=== PATIENT | male | born 1945 | race Caucasian/White ===

== ENCOUNTER 2017-11-28 13:30 | Outpatient (CLI) | payer MEDICARE, BC ==
[2018-02-02 13:51] VITALS: BMI 44.3
== END 2017-11-28 23:59 | disposition home or self-care (01) ==
LOC: D.RAD 13:30
DX: K22.2 Esophageal obstruction (principal)

== ENCOUNTER 2017-12-30 21:29 | Inpatient (IN) | payer MEDICARE, BC ==
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
[2017-12-30] MEDS ORDERED: NEURONTIN 400400 MG PO (21:48)
[2017-12-30] MEDS ORDERED: PEPCID AC20 MG PO (21:49)
[2017-12-30] MEDS ORDERED: ELIQUIS5 MG PO (21:49)
[2017-12-30] MEDS ORDERED: MARINOL5 MG PO (21:50)
[2017-12-30] MEDS ORDERED: CARAFATE1 G PO (21:51)
[2017-12-30] MEDS ORDERED: PROTONIX40 MG PO (21:51)
[2017-12-30] MEDS ORDERED: HYDROCODONE-APA1 TAB PO (21:52)
[2017-12-30] MEDS ORDERED: GLUCOPHAGE500 MG PO (21:52)
[2017-12-30] MEDS ORDERED: XANAX1 MG PO (21:53)
[2017-12-30] MEDS ORDERED: MULTIPLE VITAMI1 TA1 PO (21:53)
[2017-12-30] MEDS ORDERED: LIPITOR40 MG PO (21:54)
[2017-12-30] MEDS ORDERED: LISINOPRIL10 MG PO (21:54)
[2017-12-30] MEDS ORDERED: REMERON15 MG PO (21:55)
[2017-12-30] MEDS ORDERED: FLOMAX0.4 MG PO (21:55)
[2017-12-30] MEDS ORDERED: BAYER CHEWABLE81 MG PO (21:55)
[2017-12-30] MEDS ORDERED: FESOL PO (21:56)
[2017-12-30 22:39] LABS: BASOPHILS 0.4 % (0-2); EOSINOPHILS 6.2 % (0-7); HEMATOCRIT 39.1 % (42.0-54.0); HEMOGLOBIN 12.1 g/dL (13.5-17.5); IMMATURE GRANULOCYTES 0.3 % (0-5); LYMPHOCYTES 41.2 % (15-50); MCH 26.1 pg (26.0-34.0); MCHC 30.9 g/dL (31.0-37.0); MCV 84.3 fL (80.0-100.0); MEAN PLATELET VOLUME 9.7 fL (7.4-10.4); MONOCYTES 8.6 % (2-11); NEUTROPHILS 43.3 % (40-80); RBC 4.64 10x6/uL (4.20-6.10); RDW 16.7 % (11.5-14.5)
[2017-12-30 22:40] LABS: PLATELET COUNT 360 10x3/uL (130-400)
[2017-12-30 22:44] LABS: APTT 39.8 SECONDS (22.8-39.4); INR 1.13 (0.85-1.17)
[2017-12-30 22:49] LABS: ALBUMIN 2.6 g/dL (3.4-5.0); ALKALINE PHOSPHATASE 83 U/L (46-116); ALT (SGPT) 26 U/L (10-68); BILIRUBIN - TOTAL 0.22 mg/dL (0.2-1.3); CALC OSMOLALITY 282 mosm/kg (275-300); CALCIUM 9.1 mg/dL (8.5-10.1); CARBON DIOXIDE 32.1 mmol/L (21.0-32.0); CHLORIDE - SERUM 105 mmol/L (98-107); CREATININE - SERUM 0.9 mg/dL (0.6-1.3); GLUCOSE 119 mg/dL (74-106); PROTEIN - SERUM 7.3 g/dL (6.4-8.2); SODIUM 141 mmol/L (136-145); UREA NITROGEN 14 mg/dL (7-18); eGFR NON AFRICAN AMERICAN 88 mL/min (90-120)
[2017-12-30 23:04] LABS: CREATINE KINASE 38 UL (21-232); PRO BNP 65 pg/mL (0-125)
[2017-12-30 23:21] LABS: CKMB 0.6 U/L (0.0-3.6)
[2017-12-30 23:23] LABS: TROPONIN-I < 0.017 ng/mL (0.000-0.060)
[2017-12-31] VITALS (7 sets, daily range): BP systolic 96–121; BP diastolic 53–74; BMI 39.7; BMI 39.6
[2017-12-31 10:45] LABS: APPEARANCE HAZY (CLEAR); BILIRUBIN NEGATIVE (NEGATIVE); COLOR YELLOW (YELLOW); GLUCOSE NEGATIVE (NEGATIVE); KETONE NEGATIVE (NEGATIVE); NITRITE NEGATIVE (NEGATIVE); PROTEIN NEGATIVE (NEGATIVE); UROBILINOGEN NORMAL (NORMAL)
[2018-01-01 01:43] VITALS: BP 98/54
[2018-01-01 05:00] LABS: BASOPHILS 0.5 % (0-2); EOSINOPHILS 7.3 % (0-7); HEMATOCRIT 35.8 % (42.0-54.0); HEMOGLOBIN 10.9 g/dL (13.5-17.5); IMMATURE GRANULOCYTES 0.4 % (0-5); LYMPHOCYTES 44.1 % (15-50); MCH 25.5 pg (26.0-34.0); MCHC 30.4 g/dL (31.0-37.0); MCV 83.8 fL (80.0-100.0); MEAN PLATELET VOLUME 9.4 fL (7.4-10.4); MONOCYTES 8.2 % (2-11); NEUTROPHILS 39.5 % (40-80); PLATELET COUNT 319 10x3/uL (130-400); RBC 4.27 10x6/uL (4.20-6.10); RDW 16.5 % (11.5-14.5)
[2018-01-01 05:12] LABS: WBC 7.9 10x3/uL (4.8-10.8)
[2018-01-01 05:28] LABS: CALC OSMOLALITY 284 mosm/kg (275-300); CALCIUM 8.4 mg/dL (8.5-10.1); CARBON DIOXIDE 28.9 mmol/L (21.0-32.0); CHLORIDE - SERUM 108 mmol/L (98-107); CREATININE - SERUM 0.8 mg/dL (0.6-1.3); GLUCOSE 120 mg/dL (74-106); POTASSIUM - SERUM 3.8 mmol/L (3.5-5.1); SODIUM 143 mmol/L (136-145); eGFR NON AFRICAN AMERICAN > 90 mL/min (90-120)
[2018-01-01 05:32] LABS: UREA NITROGEN 10 mg/dL (7-18)
[2018-01-01 05:38] VITALS: BP 92/53
[2018-01-01 08:45] VITALS: BP 101/61
[2018-01-01 12:41] VITALS: BP 95/61
[2018-01-01 16:00] VITALS: BP 98/60
[2018-01-01 20:30] VITALS: BP 95/50
[2018-01-02 00:30] VITALS: BP 94/53
[2018-01-02 04:30] VITALS: BP 100/56
[2018-01-02 05:22] LABS: BASOPHILS 0.3 % (0-2); EOSINOPHILS 7.1 % (0-7); HEMATOCRIT 34.8 % (42.0-54.0); HEMOGLOBIN 10.8 g/dL (13.5-17.5); IMMATURE GRANULOCYTES 0.5 % (0-5); LYMPHOCYTES 38.4 % (15-50); MCH 25.8 pg (26.0-34.0); MCV 83.3 fL (80.0-100.0); MEAN PLATELET VOLUME 9.3 fL (7.4-10.4); MONOCYTES 6.9 % (2-11); NEUTROPHILS 46.8 % (40-80); PLATELET COUNT 340 10x3/uL (130-400); RBC 4.18 10x6/uL (4.20-6.10); RDW 16.5 % (11.5-14.5)
[2018-01-02 05:36] LABS: WBC 10.1 10x3/uL (4.8-10.8)
[2018-01-02 05:49] LABS: CALC OSMOLALITY 282 mosm/kg (275-300); CALCIUM 8.8 mg/dL (8.5-10.1); CARBON DIOXIDE 29.6 mmol/L (21.0-32.0); CHLORIDE - SERUM 105 mmol/L (98-107); CREATININE - SERUM 0.7 mg/dL (0.6-1.3); GLUCOSE 114 mg/dL (74-106); POTASSIUM - SERUM 4.1 mmol/L (3.5-5.1); SODIUM 142 mmol/L (136-145); UREA NITROGEN 10 mg/dL (7-18); eGFR NON AFRICAN AMERICAN > 90 mL/min (90-120)
[2018-01-02 07:59] VITALS: BP 108/57
[2018-01-02 11:17] VITALS: BP 114/63
[2018-01-02 15:32] VITALS: BP 129/63
[2018-01-02] MEDS ORDERED: AUGMENTIN 875-11 TAB PO (16:25)
== END 2018-01-02 18:01 | disposition home health service (06) | DRG 194 ==
LOC: D.ER 21:29 → D.M2 23:38 → D.ER 12-31 00:04 → D.M2 01-02 18:01
PROVIDERS: Family Medicine
DX: J15.9 Unspecified bacterial pneumonia (principal); J98.11 Atelectasis; I25.10 Atherosclerotic heart disease of native coronary artery without angina pectoris; F41.9 Anxiety disorder, unspecified; E11.42 Type 2 diabetes mellitus with diabetic polyneuropathy; I10 Essential (primary) hypertension; E78.5 Hyperlipidemia, unspecified; N40.0 Benign prostatic hyperplasia without lower urinary tract symptoms; Z79.01 Long term (current) use of anticoagulants; Z89.611 Acquired absence of right leg above knee; Z89.612 Acquired absence of left leg above knee; Z86.711 Personal history of pulmonary embolism

== ENCOUNTER 2018-02-02 12:03 | Day surgery (SDC) | payer MEDICARE, BC ==
[~2018-02-02] VITALS: Ht 121.9 cm; Wt 65.9 kg
--- NOTE | ~2018-02-02 | OP ---
PATIENT NAME: LINDA CRANE MEDICAL RECORD: [id number] :41 LOCATION:D.OPS ADMISSION DATE: SURGEON: MARIKA MULLEN MD DATE OF OPERATION: 02/02/2018 PROCEDURE: EGD with balloon dilatation of distal esophageal spasm and minimal stricture and EGD with biopsy. SUPERVISOR FINISHING DEPARTMENT: Marika Mullen MD SCOPE: Olympus video colonoscope. MEDICATIONS: Per TIVA anesthesia. The patient received 100 mg of propofol for this procedure, O2 4 liters. INDICATION FOR THE PROCEDURE: 1. Dysphagia. 2. Abnormal weight loss, heartburn and nausea. FINDINGS: Informed consent was given. The patient was made comfortable with the above medications. After reaching an adequate level of sedation by slow IV push, the patient was placed on his left side. The endoscope was then advanced under direct visualization through the posterior pharyngeal area where some retained fluid was noted and quickly suctioned. We then advanced the scope to the distal esophagus. The patient had some decreased esophageal motility and at the distal esophageal area, a very tight spasm was appreciated. He also had some mild dilatation of the esophagus. At this point, we will discuss the barium swallow, which was done 11/28/2017, which showed a moderately dilated esophagus throughout the entire esophagus with poor motility. This was suggestive of possible achalasia and a decrease in motility. This will need to be further evaluated with manometry. The scope was gently placed into the gastric area and this occurred after waiting for the spasms to decrease so that we could advance the scope. We then proceeded to examine the entire gastric mucosa, which was significant only for minimal inflammation. A biopsy was taken at the antral area looking for the presence of Helicobacter type pylori. We then went through the antral area into the first and second part of the duodenum, which had fairly normal tissue. On withdrawal of the scope, we proceeded to thoroughly again examine the gastric mucosa and no new findings were appreciated. At the gastroesophageal junction and distal esophagus, the patient responded well to the dilatation, but I suspect with the condition of achalasia with a hypertensive sphincter in the lower esophageal area, the effects of dilatation will be minimal overall. The mucosa at the GE junction was seen to be normal. The scope was then withdrawn. IMPRESSION: 1. Some retained secretions in the oropharyngeal area, which were suctioned. 2. The patient does have esophageal peristalsis, but it is decreased. 3. There is some very mild esophageal dilatation. 4. Hypertensive sphincter versus severe spasm at the GE junction. No obvious stricture, but we did dilate the esophagus to 60-[place] without complication. Mucosa in the distal esophageal area and throughout the esophagus was within normal limits. No biopsy required. 5. Mild gastritis, biopsy taken at the antral area looking for H. pylori. OPERATIVE REPORT [id number] LINDA CRANE 6. Normal duodenum. PLAN: 1. We will try a prescription of Levsin to see if we can relax the lower esophageal sphincter. This should be used on a p.r.n. basis, one sublingual every 4 to 6 hours p.r.n. 2. We will order esophageal manometry if the patient agrees. 3. He is presently on lot of medications, which are no longer needed. He should discontinue Protonix, only use sucralfate p.r.n. and continue his famotidine at a dose of 20 mg p.o. b.i.d. 4. Return to clinic in 1 month for further discussion. TRANSINT:[id number] Voice Confirmation ID: [id number] DOCUMENT ID: [id number] MARIKA MULLEN MD at 1319 CC: RICKI ANAND MD [id number] DICTATION DATE: 02/02/18 1456 ASSEMBLER TESTER: 02/02/18 1743 [facility] 02/02/18 [facility] [address] [place] [address]
[~2018-02-02 12:03] MED LIST: AUGMENTIN 875-11 TAB PO; BAYER CHEWABLE81 MG PO; CARAFATE1 G PO; ELIQUIS5 MG PO; FESOL PO; FLOMAX0.4 MG PO; GLUCOPHAGE500 MG PO; HYDROCODONE-APA1 TAB PO; LIPITOR40 MG PO; LISINOPRIL10 MG PO; MARINOL5 MG PO; MULTIPLE VITAMI1 TA1 PO; NEURONTIN 400400 MG PO; PEPCID AC20 MG PO; PROTONIX40 MG PO; REMERON15 MG PO; XANAX1 MG PO
[2018-02-02 12:55] LABS: BASOPHILS 0.2 % (0-2); EOSINOPHILS 2.6 % (0-7); HEMATOCRIT 41.5 % (42.0-54.0); HEMOGLOBIN 13.4 g/dL (13.5-17.5); IMMATURE GRANULOCYTES 0.2 % (0-5); LYMPHOCYTES 36.5 % (15-50); MCH 26.2 pg (26.0-34.0); MCHC 32.3 g/dL (31.0-37.0); MCV 81.2 fL (80.0-100.0); MEAN PLATELET VOLUME 8.9 fL (7.4-10.4); MONOCYTES 5.8 % (2-11); NEUTROPHILS 54.7 % (40-80); PLATELET COUNT 386 10x3/uL (130-400); RBC 5.11 10x6/uL (4.20-6.10); RDW 16.6 % (11.5-14.5)
[2018-02-02 13:13] LABS: CALC OSMOLALITY 276 mosm/kg (275-300); CALCIUM 9.6 mg/dL (8.5-10.1); CARBON DIOXIDE 31.9 mmol/L (21.0-32.0); CHLORIDE - SERUM 103 mmol/L (98-107); CREATININE - SERUM 0.9 mg/dL (0.6-1.3); GLUCOSE 123 mg/dL (74-106); POTASSIUM - SERUM 4.1 mmol/L (3.5-5.1); SODIUM 138 mmol/L (136-145); UREA NITROGEN 12 mg/dL (7-18); eGFR NON AFRICAN AMERICAN 88 mL/min (90-120)
[2018-02-02 13:51] VITALS: BP 103/71; Ht 121.9 cm; Wt 65.9 kg
== END 2018-02-02 15:45 | disposition home or self-care (01) ==
LOC: D.OPS 12:03
PROVIDERS: Internal Medicine Gastroenterology
DX: K22.8 Other specified diseases of esophagus (principal); K22.4 Dyskinesia of esophagus; K29.60 Other gastritis without bleeding; Z01.812 Encounter for preprocedural laboratory examination

== ENCOUNTER 2018-02-09 08:38 | Outpatient (CLI) | payer MEDICARE, BC ==
[2018-02-02 13:51] VITALS: BMI 44.3
== END 2018-02-09 10:40 ==
LOC: D.OPS 08:38
DX: R13.10 Dysphagia, unspecified (principal); Z01.812 Encounter for preprocedural laboratory examination

== ENCOUNTER 2018-03-10 04:41 | Inpatient (IN) | payer MEDICARE, BC ==
[~2018-03-10] VITALS: Ht 121.9 cm; Wt 59.0 kg
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
[2018-03-10 05:21] LABS: APPEARANCE CLEAR (CLEAR); COLOR YELLOW (YELLOW); GLUCOSE NEGATIVE (NEGATIVE); KETONE NEGATIVE (NEGATIVE); NITRITE NEGATIVE (NEGATIVE); PROTEIN NEGATIVE (NEGATIVE); SPECIFIC GRAVITY 1.015 (1.005-1.020)
[2018-03-10 05:22] LABS: BILIRUBIN NEGATIVE (NEGATIVE); UROBILINOGEN NORMAL (NORMAL)
[2018-03-10 05:35] LABS: BASOPHILS 0.1 % (0-2); EOSINOPHILS 0.8 % (0-7); HEMATOCRIT 43.4 % (42.0-54.0); IMMATURE GRANULOCYTES 0.2 % (0-5); MCH 26.6 pg (26.0-34.0); MCHC 32.3 g/dL (31.0-37.0); MCV 82.4 fL (80.0-100.0); MONOCYTES 5.9 % (2-11); PLATELET COUNT 319 10x3/uL (130-400); RBC 5.27 10x6/uL (4.20-6.10); WBC 14.9 10x3/uL (4.8-10.8)
[2018-03-10 05:53] LABS: ALBUMIN 3.1 g/dL (3.4-5.0); ALKALINE PHOSPHATASE 88 U/L (46-116); ALT (SGPT) 24 U/L (10-68); CALC OSMOLALITY 278 mosm/kg (275-300); CALCIUM 8.8 mg/dL (8.5-10.1); CHLORIDE - SERUM 103 mmol/L (98-107); PROTEIN - SERUM 7.7 g/dL (6.4-8.2); SODIUM 137 mmol/L (136-145); UREA NITROGEN 12 mg/dL (7-18); eGFR NON AFRICAN AMERICAN 77 mL/min (90-120)
[2018-03-10 06:09] LABS: GLUCOSE 184 mg/dL (74-106)
[2018-03-10 08:30] VITALS: BP 100/60
[2018-03-10] MEDS ORDERED: LEVSIN/ANASP0.125 MG PO (14:51)
[2018-03-10 16:32] VITALS: BP 130/69
[2018-03-10 20:00] VITALS: BP 109/59
[2018-03-10 20:11] VITALS: BMI 39.7
[2018-03-11] VITALS: BP 116/66
[2018-03-11 04:00] VITALS: BP 95/55
[2018-03-11 06:01] LABS: BASOPHILS 0.2 % (0-2); EOSINOPHILS 3.4 % (0-7); HEMATOCRIT 36.9 % (42.0-54.0); HEMOGLOBIN 11.6 g/dL (13.5-17.5); IMMATURE GRANULOCYTES 0.4 % (0-5); LYMPHOCYTES 32.2 % (15-50); MCH 26.2 pg (26.0-34.0); MCHC 31.4 g/dL (31.0-37.0); MCV 83.3 fL (80.0-100.0); MEAN PLATELET VOLUME 9.3 fL (7.4-10.4); MONOCYTES 8.2 % (2-11); NEUTROPHILS 55.6 % (40-80); PLATELET COUNT 264 10x3/uL (130-400); RBC 4.43 10x6/uL (4.20-6.10); RDW 17.5 % (11.5-14.5)
[2018-03-11 06:05] LABS: WBC 10.3 10x3/uL (4.8-10.8)
[2018-03-11 08:42] LABS: CALC OSMOLALITY 280 mosm/kg (275-300); CALCIUM 8.3 mg/dL (8.5-10.1); CARBON DIOXIDE 28.2 mmol/L (21.0-32.0); CHLORIDE - SERUM 111 mmol/L (98-107); CREATININE - SERUM 0.8 mg/dL (0.6-1.3); POTASSIUM - SERUM 3.8 mmol/L (3.5-5.1); SODIUM 141 mmol/L (136-145); UREA NITROGEN 10 mg/dL (7-18); eGFR NON AFRICAN AMERICAN > 90 mL/min (90-120)
[2018-03-11 08:43] LABS: GLUCOSE 113 mg/dL (74-106)
[2018-03-11 09:24] VITALS: BP 112/58
[2018-03-11 10:09] VITALS: Ht 121.9 cm; Wt 59.0 kg
== END 2018-03-11 15:59 | disposition home or self-care (01) | DRG 864 ==
LOC: D.ER 04:41 → D.EDHOLD 06:59 → D.MS 06:59
PROVIDERS: Family Medicine
DX: R50.9 Fever, unspecified (principal); R13.10 Dysphagia, unspecified; E11.42 Type 2 diabetes mellitus with diabetic polyneuropathy; I25.10 Atherosclerotic heart disease of native coronary artery without angina pectoris; F41.9 Anxiety disorder, unspecified; I10 Essential (primary) hypertension; E78.5 Hyperlipidemia, unspecified; N40.0 Benign prostatic hyperplasia without lower urinary tract symptoms; Z89.612 Acquired absence of left leg above knee; Z89.611 Acquired absence of right leg above knee; K21.9 Gastro-esophageal reflux disease without esophagitis

== ENCOUNTER → 2018-06-06 09:35 | Outpatient (CLI) | payer MEDICARE, BC ==
[2018-03-11 10:09] VITALS: BMI 39.6
--- NOTE | ~2018-06-06 | ST ---
PATIENT:LINDA CRANE MEDICAL RECORD: [id number] SEX: M LOCATION:[facility] ORDER #: ADMISSION DATE: 06/06/18 AGE OF PATIENT: 73 REFERRING PHYSICIAN: INTERPRETING PHYSICIAN: RAJEEV FELICIANO MD REFERRING PHYSICIAN: Harjit Contreras MD TECHNOLOGIST: AJ Mathew/RIGHT Shante (N) CLINICIAN: Leela Momin RN CLINICAL INDICATIONS: 1. Angina. 2. Coronary artery disease. 3. Hyperlipidemia. 4. Hypertension. PHARMACOLOGIC STRESS PROCEDURE: 1. The patient performed a chemical stress test at rest receiving 0.4 mg Lexiscan by rapid IV injection over 10-15 seconds. 2. This was followed by 5 mL of normal saline both administered by above Clinician. 3. The tracer was administered IV 10-20 second post saline flush per protocol by Technologist. 4. The heart rate was 85 at baseline and was 105 at peak infusion. 5. The blood pressure response was normal. B/P was 116/74 at baseline, 101/62 at peak infusion. 6. The patient had no complaints of angina or anginal equivalent discomfort. 7. The patient had no complaints of shortness of breath following injection of Lexiscan. 8. No significant arrhythmias were observed. 9. The electrocardiogram demonstrated no ST changes suggestive of ischemia. 10. The electrocardiogram demonstrated a normal response to Lexiscan. 11. Normal response to Lexiscan pharmacological stress testing. REST STUDY: DATE: 06/06/2018 HOUR: 09:55 RADIOISOTOPE: Cardiolite 99m Tc VOLUME: 0.6 mL ACTIVITY: 10.1 mCi METHOD OF ADMIN: IV SCAN STARTED: (hour) 11.05 STRESS STUDY: DATE: 06/06/18 HOUR: 11:20 RADIOISOTOPE: Cardiolite 99m Tc VOLUME: 0.8 mL ACTIVITY: 33.0 mCi METHOD OF ADMIN: IV SCAN STARTED: (hour) 12.25 GATED IMAGING: Gated SPECT reveals a preserved ejection fraction of 70% with good wall motion, thickening, and brightening throughout all segments. SPECT: SPECT imaging was performed using Cardiolite as the myocardial perfusion CARDIAC STRESS TEST [id number] LINDA CRANE imaging agent. There is homogeneous uptake throughout all segments but no evidence of inducible ischemia or previous infarction. OVERALL IMPRESSION: 1. This is a normal nuclear stress test with no evidence of inducible ischemia or previous infarction. 2. Gated SPECT reveals a preserved ejection fraction of 70%. 3. In this patient with ongoing symptomatology, the current scan has a low likelihood of hemodynamically significant coronary artery disease. 4. Would evaluate noncardiac etiology chest discomfort. RAJEEV FELICIANO MD at 1856 CC: [id number] DICTATION DATE: 06/06/18 5245 DOOR HANGER: DM 06/07/18 1416 DEP CLI 06/06/18 [facility] [address] [place] [address]
[~2018-06-06 09:35] MED LIST changes: +LEVSIN/ANASP0.125 MG PO
== END | disposition home or self-care (01) ==
LOC: D.HCCARDIO 09:35
DX: I25.10 Atherosclerotic heart disease of native coronary artery without angina pectoris (principal)

== ENCOUNTER 2020-01-17 21:58 | Inpatient (IN) | payer MEDICARE, BC ==
[~2020-01-17] VITALS: Ht 121.9 cm; Wt 68.0 kg
[2020-01-18] MEDS ORDERED: AMBIEN10 MG PO (11:33)
[2020-01-21 11:08] LABS: HEMATOCRIT 48.4 % (42.0-54.0); HEMOGLOBIN 15.6 g/dL (13.5-17.5); MCH 29.1 pg (26.0-34.0); MCHC 32.2 g/dL (31.0-37.0); MCV 90.3 fL (80.0-100.0); MEAN PLATELET VOLUME 8.9 fL (7.4-10.4); RBC 5.36 10x6/uL (4.20-6.10); RDW 14.6 % (11.5-14.5); WBC 7.3 10x3/uL (4.8-10.8)
[2020-01-21 11:17] LABS: ANION GAP 8.2 mmol/L (8-16); CALCIUM 9.2 mg/dL (8.5-10.1); CARBON DIOXIDE 32.2 mmol/L (21.0-32.0); CREATININE - SERUM 1.1 mg/dL (0.6-1.3); POTASSIUM - SERUM 4.4 mmol/L (3.5-5.1)
[2020-01-21 12:19] VITALS: BP 101/81; BMI 45.8
--- NOTE | 2020-01-21 14:36 | NUR ---
1435 URINAL PROVIDED TO PT. PT'S AT SIDE.
--- NOTE | 2020-01-21 15:05 | NUR ---
1500 REPORT PHONED TO ERAN. AWAITING ROOMS READINESS.
--- NOTE | 2020-01-21 15:45 | NUR ---
1545 TO 2222 VIA BED
[2020-01-21 16:08] VITALS: BP 101/81; BMI 45.8
--- NOTE | 2020-01-21 16:08 | NUR ---
RECEIVED PATIENT TRANSFER FROM OUTPATIENT. ALERT AND ORIENTED, ACCOMPANIED BY FAMILY. C/O PAIN. NO S/S OF ACUTE DISTRESS NOTED. IV TO RIGHT FOREARM, SL. SITE PATENT WITHOUT REDNESS OR SWELLING. ON 1.5L O2, NC. NPO. PEG TUBE PLACED LUQ, ABDOMINAL BINDER. BILATERAL AKA, 2 YEARS AGO. DENIES ANY NEEDS AT THIS TIME. CALL LIGHT IN REACH. WILL CONTINUE TO MONITOR.
--- NOTE | 2020-01-21 18:55 | NUR ---
A&O RESTING IN BED WITH EYES OPEN. NO C/O PAIN. NO S/S OF ACUTE DISTRESS NOTED. DENIES ANY NEEDS AT THIS TIME. CALL LIGHT IN REACH. WILL CONTINUE TO MONITOR.
[2020-01-21 21:00] VITALS: BP 103/55
--- NOTE | 2020-01-21 23:10 | NUR ---
TEMP OF 102.[address] HERNANDEZ RETRUNED WITH NEW ORDER OF TYLENOL 650MG Q 6 HR PRN.
[2020-01-22] VITALS (7 sets, daily range): BP systolic 82–101; BP diastolic 49–62; Ht 121.9 cm; Wt 68.0 kg
--- NOTE | 2020-01-22 07:03 | NUR ---
PATIENT RESTING QUIETLY IN BED WITH EYES CLOSED. RESPIRATIONS EVEN NON LABORED. NO SIGNS OF DISTRESS NOTED. SIDE RAILS UP. CALL LIGHT IN REACH. WILL CONTINUE TO MONITOR FOR SAFETY.
--- NOTE | 2020-01-22 09:49 | NUR ---
PATIENT ALERT AND ORIENTED RESTING QUIETLY IN BED. FAMILY AT BEDSIDE. RESPIRATIONS EVEN NOLABORED. NO SIGNS OF DISTRESS NOTED. BELOW THE KNEE AMPUTEE ON BOTH LEGS. PEG TUBE IN PLACE. ABDOMINAL BINDER ON. RIGHT ARM SALINE LOCK. O2 ON 1.5L. DENIES FURTHER NEEDS. SIDE RAILS UP. CALL LIGHT IN REACH. WILL CONTINUE TO MONITOR FOR SAFETY.
--- NOTE | 2020-01-22 10:20 | OP ---
PATIENT NAME: LINDA CRANE MEDICAL RECORD: [id number] :41 LOCATION:D.[address] ADMISSION DATE: SURGEON: ANNA HERNANDEZ MD DATE OF OPERATION: 01/21/2020 SURGEON: Anna Hernandez MD PREOPERATIVE DIAGNOSIS: Achalasia, dysphagia and esophageal dysmotility. POSTOPERATIVE DIAGNOSIS: Achalasia, dysphagia and esophageal dysmotility. PROCEDURE PERFORMED: EGD with balloon dilatation and percutaneous endoscopic gastrostomy tube placement. ANESTHESIA: General. COMPLICATIONS: None. SPECIMENS: None. OPERATIVE COURSE: After consent was obtained, the patient was taken to the operating room and placed in the supine position on the operating room table. General anesthesia was given. A timeout was taken to confirm the correct patient and procedure. A bite block was placed and the scope was passed through the biteblock into the posterior oropharynx. It was passed posterior to the epiglottis under direct endoscopic vision, it was advanced to the esophagus under direct endoscopic vision. There was stenosis noted at the GE junction. The scope was able to be traversed across the GE junction with moderate tension. Once in the stomach, his stomach was insufflated. The scope was advanced through the pylorus into the first portion of duodenum. No abnormalities were identified. The scope was retracted and retroflexed. There is possibly a small hiatal hernia noted. At this time, the 18-20 mm balloon was passed through the working channel of the scope. The scope was directed to the GE junction. The distal esophagus was dilated to 18 mm and held for approximately 3 minutes. Once this was complete, the mucosa was inspected. There was no evidence of mucosal trauma or injury. No bleeding. Scope was advanced back into the stomach and transilluminated into the left upper quadrant. The site was marked and abdominal wall was prepped and draped in typical sterile fashion. Local anesthetic was injected. A stab incision was made with 11-blade scalpel. The needle and angiocatheter passed through the skin incision and into the lumen of the stomach in direct endoscopic vision. The needle was removed. A wire was placed through the Angiocath and grabbed with the snare grasper. At this time, the grasper EGD and wire were removed. The gastrostomy tube was connected to the wire and a standard antegrade pull technique the gastrostomy tube was advanced, pulled to the skin and secured at 3 cm. At this time, the procedure was terminated. All needle and instrument counts were correct. The patient was transferred was extubated and transferred to recovery room in satisfactory condition. TRANSINT:[id number] Voice Confirmation ID: [id number] DOCUMENT ID: [id number] OPERATIVE REPORT [id number] LINDA CRANE JAMES J MD at 1020 CC: [id number] DICTATION DATE: 01/21/20 1402 CUSHION FORMER: 01/22/20 0027 [address] [place] [address] [place] [address]
--- NOTE | 2020-01-22 14:01 | NUR ---
CHECKED ON PATIENT. O2 SAT ON 88%. TURNED O2 UP TO 4L. NOTIFITED DR. HERNANDEZ AND RESPIRATORY. MARY PUT IN ORDERS. PATIENT ALERT AND TALKING. NO S/S OF DISTRESS. PATIENT ON 3L. O2 SAT ON 96%. RESITED GEORGINA TO RIGHT HAND 22GAUGE X1 STICK. AT BEDSIDE. SIDE RAILS UP X3. CALL LIGHT IN REACH. WILL CONTINUE TO MONITOR FOR SAFETY.
--- NOTE | 2020-01-22 15:44 | MORECARE ---
CASE MANAGEMENT DISCHARGE SUMMARY PATIENT: LINDA CRANE UNIT: [id number] ADM DATE: 01/21/20 AGE: 74 : 43 SEX: M ROOM/BED: D.2222 AUTHOR: DANIEL SNOW PHYSICIAN: REFERRING PHYSICIAN: ANNA HERNANDEZ MD DATE OF SERVICE: 01/22/20 Discharge Plan Patient Name: LINDA CRANE Facility: [facility]:[place] : 1945 Planned Disposition: Anticipated Discharge Date: Discharge Date: Expected LOS: 0 Initial Reviewer: [email or web address] Initial Review Date: 01/22/2020 Generated: 01/22/20 4:43 pm Comments DCP- Discharge Planning Updated by [email or web address]: Heidi Olivas on 01/22/20 2:[address] Patient Name: LINDA CRANE Admission Status: Elective Accout number: [id number] Admission Date: 01-21-2020 : 1945 Admission Diagnosis: Attending: ANNA HERNANDEZ Current LOS: 1 Anticipated DC Date: Planned Disposition: Primary Insurance: MEDICARE A & B Discharge Planning Comments: CM MET WITH PATIENT REGARDING DME FOR TUBE FEEDINGS AND A HH COMPANY. CHIO SIGNED FOR [facility] AND [facility] OR [facility] FOR DME. [facility] CONTACTED AND THEY ONLY DO FOR CHILDREN. [facility] CONTACTED, WAITING FOR CALL BACK. WILL FAX HH ORDERS TO [facility]. Senior Vice President: Heidi Olivas External Providers External Provider: [facility]FTER[facility] [place] Next Contact Date: Service Request Date: Service Type: Resolution: Reviewer: Comments: External Provider: Roque Next Contact Date: Service Request Date: Service Type: Resolution: Reviewer: Comments: External Provider: [facility] Next Contact Date: Service Request Date: Service Type: Resolution: Reviewer: Comments: Coverage Notice Reviewer: [email or web address] Sean Olivas Notice Issued Date-Time: 01/22/2020 10:10 Notice Type: Medicare Outpatient Observation Notice Notice Delivered To: Patient Relationship to Patient: Project Management Director Name: Delivery Method: HAND - Hand Delivered Cyn Days: Prior Verbal Notification: Recipient Understood Notice: Yes Recipient Signature: Yes Med Rec Note Co-signed by Attending: Coverage Notice Comment: Reviewer: [email or web address] Sean Olivas Notice Issued Date-Time: 01/22/2020 15:25 Notice Type: Patient Choice Letter Notice Delivered To: Patient Relationship to Patient: Project Management Director Name: Delivery Method: HAND - Hand Delivered Cyn Days: Prior Verbal Notification: Recipient Understood Notice: Yes Recipient Signature: Yes Med Rec Note Co-signed by Attending: Coverage Notice Comment: stephanie lawrence [facility] Patient Name: LINDA CRANE Page [phone] at 1544 All edits/amendments must be made on the electronic document DICTATION DATE: 01/22/20 1543 THREAD TRIMMER: KIM 01/22/20 1543 RPT#: [id number] DC DATE: STATUS: REG [facility] [address] [place] [address] END OF REPORT
--- NOTE | 2020-01-22 17:56 | NUR ---
ASSISTED PATIENT WITH INCINTIVE SPIROMETER. PATIENT MET 1250 12X. WAS UNABLE TO HOLD. RESPIRATIONS EVEN NONLABORED. NO SIGNS OF DISTRESS. SIDE RAILS UP X3. CALL LIGHT IN REACH. WILL CONTINUE TO MONITOR.
--- NOTE | 2020-01-22 18:48 | NUR ---
PATIENT ALERT AND ORIENTED, EATING. RESPIRATIONS EVEN NONLABORED. NO SIGNS OF DISTRESS NOTED. DENIES FURTHER NEEDS. SIDE RAILS UP X3. CALL LIGHT IN REACH. WILL CONTINUE TO MONITOR FOR SAFETY.
--- NOTE | 2020-01-23 02:48 | NUR ---
I have reviewed this patient and I concur with the Shift Assessment completed by the Licensed Practical Nurse today this shift.
[2020-01-23 05:25] VITALS: BP 87/50
--- NOTE | 2020-01-23 05:25 | NUR ---
01/22/20) 0 CONTINUES TO REQUEST XANAX BP 93/[id number]) EYES CLOSED RESP DEEP AND EVEN MOUTH BREATHING NAME CALLED TOUCHED PT. TWICE CONTINUES TO SLEEP RESP. DEEP AND EVEN NO RESP. DIFFICULTY OBSERVED. WILL CONTINUE TO MONITOR FOR ANY CHGES AND FOLLOW CURRENT PLAN OF CARE.
[2020-01-23 05:34] LABS: BASOPHILS 0.1 % (0-2); EOSINOPHILS 0.6 % (0-7); IMMATURE GRANULOCYTES 0.7 % (0-5); LYMPHOCYTES 25.1 % (15-50); MCH 28.8 pg (26.0-34.0); MCHC 31.8 g/dL (31.0-37.0); MCV 90.6 fL (80.0-100.0); MEAN PLATELET VOLUME 9.2 fL (7.4-10.4); MONOCYTES 12.5 % (2-11); PLATELET COUNT 230 10x3/uL (130-400); RDW 14.9 % (11.5-14.5)
[2020-01-23 05:37] LABS: HEMATOCRIT 38.7 % (42.0-54.0); HEMOGLOBIN 12.3 g/dL (13.5-17.5); RBC 4.27 10x6/uL (4.20-6.10)
[2020-01-23 05:40] LABS: ANION GAP 10.8 mmol/L (8-16); CALCIUM 7.9 mg/dL (8.5-10.1); CARBON DIOXIDE 25.5 mmol/L (21.0-32.0); CREATININE - SERUM 1.3 mg/dL (0.6-1.3)
[2020-01-23 05:46] LABS: POTASSIUM - SERUM 3.3 mmol/L (3.5-5.1)
[2020-01-23 08:00] VITALS: BP 96/43
--- NOTE | 2020-01-23 08:02 | NUR ---
PATIENT ALERT AND ORIENTED. SITTING UP IN BED. RESPIRATIONS EVEN NON LABORED. NO SIGNS OF DISTRESS NOTED. PEG TUBE IN PLACE. ABDOMINAL BINDER ON. NORMAL BELOW KNEE AMPUTEE BOTH LEGS. 02 AT 3L. RIGHT HAND GEORGINA NORMAL SALINE AT 50ML/HR. DENIES FURTHER NEEDS. SIDE RAILS UP X3. CALL LIGHT IN REACH. WILL CONTINUE TO MONITOR FOR SAFETY.
--- NOTE | 2020-01-23 10:06 | NUR ---
PAITENT ALERT AND ORIENTED. RESPIRATIONS EVEN NON LABORED. NO SIGNS OF DISTRESS NOTED. PATIENT STATES PAIN IS "10". TYLENOL GIVEN. DENIES FURTHER NEEDS. SIDE RAILS UPX3. CALL LIGHT IN REACH. WILL CONTINUE TO MONITOR FOR SAFETY.
--- NOTE | 2020-01-23 10:44 | MORECARE ---
CASE MANAGEMENT DISCHARGE SUMMARY PATIENT: LINDA CRANE UNIT: [id number] ADM DATE: 01/22/20 AGE: 74 : 43 SEX: M ROOM/BED: D.2222 AUTHOR: [email or web address] PHYSICIAN: REFERRING PHYSICIAN: ANNA HERNANDEZ MD DATE OF SERVICE: 01/23/20 Discharge Plan Patient Name: LINDA CRANE Facility: [facility]:[place] : 1945 Planned Disposition: Anticipated Discharge Date: Discharge Date: Expected LOS: 0 Initial Reviewer: [email or web address] Initial Review Date: 01/22/2020 Generated: 01/23/20 11:44 am Comments DCP- Discharge Planning Updated by [id number]: Heidi Olivas on 01/22/20 2:[address] Patient Name: LINDA CRANE Admission Status: Elective Accout number: [id number] Admission Date: 01-21-2020 : 1945 Admission Diagnosis: Attending: ANNA HERNANDEZ Current LOS: 1 Anticipated DC Date: Planned Disposition: Primary Insurance: MEDICARE A & B Discharge Planning Comments: CM MET WITH PATIENT REGARDING DME FOR TUBE FEEDINGS AND A HH COMPANY. [facility] SIGNED FOR [facility] FOR DME. [facility] CONTACTED AND THEY ONLY DO FOR CHILDREN. [facility] CONTACTED, WAITING FOR CALL BACK. WILL FAX HH ORDERS TO [facility] . Ocean Freight Manager: Heidi Olivas Coverage Notice Reviewer: [id number] Sean Olivas Notice Issued Date-Time: 01/22/2020 10:10 Notice Type: Medicare Outpatient Observation Notice Notice Delivered To: Patient Relationship to Patient: Punch Press Setter Name: Delivery Method: HAND - Hand Delivered Cyn Days: Prior Verbal Notification: Recipient Understood Notice: Yes Recipient Signature: Yes Med Rec Note Co-signed by Attending: Coverage Notice Comment: Reviewer: [email or web address] Sean Olivas Notice Issued Date-Time: 01/22/2020 15:25 Notice Type: Patient Choice Letter Notice Delivered To: Patient Relationship to Patient: Punch Press Setter Name: Delivery Method: HAND - Hand Delivered Cyn Days: Prior Verbal Notification: Recipient Understood Notice: Yes Recipient Signature: Yes Med Rec Note Co-signed by Attending: Coverage Notice Comment: [facility] Last DP export: 01/22/20 2:44 p Patient Name: LINDA CRANE Page [id number] at 1044 All edits/amendments must be made on the electronic document DICTATION DATE: 01/23/20 1044 GRAZING AIDE: KIM 01/23/20 1044 RPT#: [id number] DC DATE: STATUS: ADM IN [facility] [address] [place] [address] END OF REPORT
--- NOTE | 2020-01-23 11:24 | NUR ---
I have reviewed this patient and I concur with the Shift Assessment completed by the Licensed Practical Nurse today this shift.
--- NOTE | 2020-01-23 13:06 | NUR ---
DISCHARGED PATIENT HOME VIA ELECTRIC WHEELCHAIR WITH . MANJIT MARTINEZ WENT OVER DISCHARGE INSTRUCTIONS WITH PATIENT AND FAMILY, AND DISCONTINUED IV CATHETER TIP INTACT. PATIENT AND SPOUSE VERBALIZED UNDERSTANDING OF INSTRUCTIONS. THIS NURSE DEMONSTRATED HOW TO GIVE A GLUCERNA 1.5 MICHAEL BOLUS FEEDING INTO PEG TUBE WITH PATIENT AND SPOUSE. THEY PARTIALLY DEMONSTRATED AND VERBALIZED UNDERSTANDING OF INSTRUCTIONS. SENT HOME SUPPLIES AND 20 CANS OF GLUCERNA 1.5 MICHAEL WITH PATIENT. DENIES ANYTHING FURTHER.
--- NOTE | 2020-01-24 17:34 | MORECARE ---
CASE MANAGEMENT DISCHARGE SUMMARY PATIENT: LINDA CRANE UNIT: [id number] ADM DATE: 01/21/20 AGE: 74 : 43 SEX: M ROOM/BED: D.2222 AUTHOR: DANIEL SNOW PHYSICIAN: REFERRING PHYSICIAN: ANNA HERNANDEZ MD DATE OF SERVICE: 01/24/20 Discharge Plan Patient Name: LINDA CRANE Facility: [facility]:[place] : 1945 Planned Disposition: Anticipated Discharge Date: Discharge Date: 01/23/2020 Expected LOS: 0 Initial Reviewer: [email or web address] Initial Review Date: 01/22/2020 Generated: 01/24/20 6:34 pm Comments DCP- Discharge Planning Updated by [email or web address]: Heidi Olivas on 01/22/20 2:[address] Patient Name: LINDA CRANE Admission Status: Elective Accout number: [id number] Admission Date: 01-21-2020 : 1945 Admission Diagnosis: Attending: ANNA HERNANDEZ Current LOS: 1 Anticipated DC Date: Planned Disposition: Primary Insurance: MEDICARE A & B Discharge Planning Comments: CM MET WITH PATIENT REGARDING DME FOR TUBE FEEDINGS AND A HH COMPANY. CHIO SIGNED FOR [facility] AND [facility] FOR DME. [facility] CONTACTED AND THEY ONLY DO FOR CHILDREN. [facility] CONTACTED, WAITING FOR CALL BACK. WILL FAX HH ORDERS TO [facility] . Marine Underwriter: Heidi Olivas Coverage Notice Reviewer: [id number] Sean Olivas Notice Issued Date-Time: 01/22/2020 10:10 Notice Type: Medicare Outpatient Observation Notice Notice Delivered To: Patient Relationship to Patient: Consulting Engineer Name: Delivery Method: HAND - Hand Delivered Cyn Days: Prior Verbal Notification: Recipient Understood Notice: Yes Recipient Signature: Yes Med Rec Note Co-signed by Attending: Coverage Notice Comment: Reviewer: [email or web address] Sean Olivas Notice Issued Date-Time: 01/22/2020 15:25 Notice Type: Patient Choice Letter Notice Delivered To: Patient Relationship to Patient: Consulting Engineer Name: Delivery Method: HAND - Hand Delivered Cyn Days: Prior Verbal Notification: Recipient Understood Notice: Yes Recipient Signature: Yes Med Rec Note Co-signed by Attending: Coverage Notice Comment: [facility] Last DP export: 01/23/20 9:44 am Patient Name: LINDA CRANE Page [phone] at 1734 All edits/amendments must be made on the electronic document DICTATION DATE: 01/24/201733 ATHLETICS DIRECTOR: KIM 01/24/201733 RPT#: [id number] DC DATE:01/23/20 STATUS: DIS IN [facility] [address] [place] [address] END OF REPORT
== END 2020-01-23 13:10 | disposition home or self-care (01) | DRG 392 ==
LOC: D.OPS 01-21 10:42 → D.MS 01-21 10:42 → D.OPS 01-21 13:00 → EDSTATUS 01-21 13:00 → D.MS 01-21 15:45 → D.OPS 01-21 15:45 → D.MS 01-22 15:56 → D.OPS 01-22 15:57 → D.MS 01-22 15:57
PROVIDERS: Anesthesiology; ADMIT Surgery; ATTEND Surgery
PROC: 0D758ZZ Dilation of Esophagus, Via Natural or Artificial Opening Endoscopic (ICD-10-PCS; principal; 2020-01-21 13:00)
PROC: 0DH64UZ Insertion of Feeding Device into Stomach, Percutaneous Endoscopic Approach (ICD-10-PCS; 2020-01-21 13:00)
DX: K22.0 Achalasia of cardia (principal); E46 Unspecified protein-calorie malnutrition; R13.10 Dysphagia, unspecified